=== PATIENT | female | born 1950 | race Caucasian/White ===

== ENCOUNTER 2018-08-20 23:25 | Emergency (ER) | payer MEDICARE, OTHER ==
[~2018-08-20] VITALS: Ht 165.1 cm; Wt 59.0 kg
[2018-08-20 23:25] VITALS: BP 126/86
--- NOTE | 2018-08-20 23:25 | NUR ---
ED Nurse Note: Pt was BIBA from home, c/o ALOC since this morning. Pt refused to give any information at this time. Pt is A/O X 3-4. Vital signs stable at this time, waitng for orders.
--- NOTE | 2018-08-21 00:10 | NUR ---
ED Nurse Note: Pt's Daughter arrived, Lucia/ and she tried to tals to the Pt and pt was able to cooperate at this time.
--- NOTE | 2018-08-21 00:25 | NUR ---
ED Nurse Note: Blood and urine sample collected and sent to Lab.
[2018-08-21 00:46] LABS: BASOPHILS % (AUTO) 0.5 % (0.0-2.0); EOSINOPHILS % (AUTO) 0.3 % (0.0-3.0); HEMATOCRIT 39.7 % (37.0-47.0); HEMOGLOBIN 13.8 G/DL (12.0-16.0); LYMPHOCYTES % (AUTO) 17.8 % (20.0-45.0); MEAN CORPUSCULAR VOLUME 88 FL (80-99); MONOCYTES % (AUTO) 5.9 % (1.0-10.0); NEUTROPHILS % (AUTO) 75.5 % (45.0-75.0); PLATELET COUNT 159 K/UL (150-450); RED BLOOD COUNT 4.49 M/UL (4.20-5.40); RED CELL DISTRIBUTION WIDTH 12.1 % (11.6-14.8); WHITE BLOOD COUNT 12.4 K/UL (4.8-10.8)
[2018-08-21 00:47] LABS: APPEARANCE,URINE SLIGHTLY CLOUDY; BILIRUBIN, URINE NEGATIVE (NEGATIVE); COLOR,URINE YELLOW; GLUCOSE, URINE (UA) NEGATIVE (NEGATIVE); KETONES,URINE 3+ (NEGATIVE); LEUKOCYTE ESTERASE ,URINE 3+ (NEGATIVE); NITRITE,URINE NEGATIVE (NEGATIVE); PH,URINE 5 (4.5-8.0); PROTEIN,URINE 2+ (NEGATIVE); UROBILINOGEN,URINE 1 MG/DL (0.0-1.0)
--- NOTE | 2018-08-21 00:57 | Emergency Room Report ---
History of Present Illness General Chief Complaint: Behavioral Complaint Source: Family Member, EMS Present Illness HPI Is a 68-year-old female with a history of severe depression with catonic psychosis. She was brought in by EMS with altered mental status. She's been sitting on the curb all day without moving. She refused to give any history through EMS. History is through her son who is a doctor at [facility]. He said that she has a history of severe depression with psychiatric features. She 's been admitted to [facility] for this before. Patient did not have any trauma. No other complaint. History is limited in this patient because she's not cooperative. She is currently taking Lexapro and Seroquel. Allergies: Coded Allergies: UNABLE TO ASSESS (Unverified , 08/20/18) Patient History Past Medical History: see triage record, old chart reviewed, psych hx, depression Past Surgical History: other Family History: none Social History: other Last Menstrual Period: pt is non verbal Now: No Immunizations: other Reviewed Nursing Documentation: PMH: Agreed; PSxH: Agreed Nursing Documentation-PMH History Of Psychiatric Problem: Yes - depression Review of Systems ENT: Denies: sore throat Cardiovascular: Denies: chest pain, palpitations Gastrointestinal/Abdominal: Denies: nausea, vomiting, diarrhea Musculoskeletal: Denies: back problems Skin: Denies: rash Psychiatric: Reports: depression Neurological: Denies: ALEX, seizures All Other Systems: negative except mentioned in HPI Physical Exam Vital Signs Date Time Temp Pulse Resp B/P (MAP) Pulse Ox O2 Delivery O2 Flow Rate FiO2 08/20/18 23:18 97.3 74 17 126/86 97 Room Air Sp02 EP Interpretation: reviewed, normal General Appearance: alert/responsive, no apparent distress, non-toxic, other - Very thin Head: normocephalic, atraumatic Eyes: PERRL, EOMI ENT: oropharynx normal Neck: supple/symm/no masses Respiratory: effort normal, no rhonchi, no wheezing Cardiovascular: no murmur, gallop, rub Gastrointestinal: non-tender, no mass, non-distended, no rebound/guarding, normal bowel sounds Musculoskeletal: gait & station normal Neurologic: oriented x3, sensory intact, motor strength/tone normal Psychiatric: no suicidal/homicidal ideation, other - Depressed affect Skin: no rash, normal palpation Medical Decision Making Diagnostic Impression: Primary Impression: Major psychotic depression, recurrent Additional Impressions: Gravely disabled UTI (urinary tract infection) Qualified Codes: N30.00 - Acute cystitis without hematuria ER Course patient presents with severe depression with psychotic feature including catatonia. She was not cooperative and not talking. Very flat/depressed affect. She became more responsive once her daughter is here. When she is medically clear, family is willing to take her to [facility] where they want her to be admitted. Since they are reliable, I see no problem with this. Last Vital Signs Date Time Temp Pulse Resp B/P (MAP) Pulse Ox O2 Delivery O2 Flow Rate FiO2 08/20/18 23:25 75 17 Room Air 08/20/18 23:25 97.3 126/86 97 Status: improved Disposition: HOME, SELF-CARE Condition: Stable Scripts Cephalexin* (KEFLEX*) 500 Mg Capsule 500 MG ORAL TID, #21 CAP Prov: Lui Burns MD 08/21/18 Additional Instructions: Follow-up with psychiatrist EMILY. Return if symptom worsen. Lui Burns MD Aug 21, 2018 00:57
[2018-08-21] MEDS ORDERED: cefTRIAXone 1 GM in NS 55 ML IVPB ONE (01:00)
[2018-08-21 01:01] LABS: ANION GAP 7 mmol/L (5-15); BLOOD UREA NITROGEN 28 mg/dL (7-18); CALCIUM 8.6 MG/DL (8.5-10.1); CARBON DIOXIDE 30 MMOL/L (21-32); CHLORIDE 106 MMOL/L (98-107); CREATININE 0.8 MG/DL (0.55-1.30); POTASSIUM 3.5 MMOL/L (3.5-5.1); SODIUM 143 MMOL/L (136-145)
[2018-08-21 01:07] LABS: ALANINE AMINOTRANSFERASE 27 U/L (12-78); ALBUMIN 3.9 G/DL (3.4-5.0); ALBUMIN/GLOBULIN RATIO 1.2 (1.0-2.7); ALKALINE PHOSPHATASE 56 U/L (46-116); ASPARTATE AMINO TRANSFERASE 18 U/L (15-37); BILIRUBIN,TOTAL 0.5 MG/DL (0.2-1.0)
[2018-08-21] MEDS ORDERED: CEPHALEXIN500 MG ORAL (01:37)
[2018-08-21 01:46] VITALS: BP 129/81
--- NOTE | 2018-08-21 01:46 | NUR ---
ER DISCHARGE NOTE: Patient is cleared to be discharged per Dr. Burns.IV meds given as ordered. Pt is A/O x4 on room air with stable vital signs. Pt was given dc and prescription instructions, pt was able to verbalize understanding, pt id band and IV removed . pt is able to ambulate with steady gait, pt took all belongings. Accompanied by pt's daughter.
== END 2018-08-21 01:46 | disposition home or self-care (01) ==
LOC: EDBD 23:25 → EMR 08-21 01:45
DX: F33.3 Major depressive disorder, recurrent, severe with psychotic symptoms (principal); N39.0 Urinary tract infection, site not specified
CPT/HCPCS: 36415; 80053; 80307; 81003; 85025; 87086; 96365; 99284; G0480; J0696; 80329